=== PATIENT | female | born 1970 | race Hispanic/Latino ===

== ENCOUNTER 2020-07-23 08:27 | Emergency (ER) | payer SELFPAY ==
--- NOTE | 2020-07-23 09:38 | RAD REPORT ---
EXAM DESCRIPTION: CT - [id number] - 07/23/2020 9:20 am CLINICAL HISTORY: Trauma, head and neck injury. PAIN COMPARISON: No comparisons TECHNIQUE: Axial 5 mm thick images of the head were obtained. Axial 2 mm thick images of the cervical spine were obtained with sagittal and coronal reconstruction images generated and reviewed. All CT scans are performed using dose optimization technique as appropriate and may include automated exposure control or mA/KV adjustment according to patient size. FINDINGS: CT HEAD WITHOUT CONTRAST: No acute hemorrhage, hydrocephalus or extra-axial collection is identified.No areas of brain edema or midline shift. The paranasal sinuses and mastoids are clear.The calvarium is intact. CT CERVICAL SPINE WITHOUT CONTRAST: No fracture or subluxation.No prevertebral soft tissues swelling is identified. IMPRESSION: No acute intracranial or cervical spine findings.
--- NOTE | 2020-07-23 09:39 | RAD REPORT ---
EXAM DESCRIPTION: RAD - Hip Left 2 View - 07/23/2020 9:27 am CLINICAL HISTORY: PAIN COMPARISON: No comparisons FINDINGS: No fracture, dislocation or AVN.
--- NOTE | 2020-07-23 09:53 | EDPHYS ---
Physician Documentation [facility] Name: Livier Tee Age: 50 yrs Sex: Female : 1970 Arrival Date: 07/23/2020 Time: 08:29 Bed 18 Private MD: ED Physician Allen Michaels HPI: 07/23 09:48 This 50 yrs old Female presents to ER via Ambulatory with complaints of Fall kb Injury, Head Injury-Adult. 09:48 Details of fall: The patient fell from a height, down approximately 4 stairs. Onset: kb The symptoms/episode began/occurred this morning. Associated injuries: The patient sustained injury to the head, hematoma, pain, left hip, painful injury, left subscapular area and left scapular area, painful injury, no tenderness. Severity of symptoms: At their worst the symptoms were mild, moderate, in the emergency department the symptoms are unchanged. The patient has not experienced similar symptoms in the past. The patient has not recently seen a physician. 09:49 Pt reports she slipped going down the stairs and fell down the last 4 steps. States she kb hit her head. Denies LOC, dizziness, nausea, confusion. States she has pain to head, left hip, left upper back. Full ROM of all extremities. Ambulates with steady gait. 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 - Social history:: Smoking status: Patient reports the use of cigarette tobacco products, smokes one pack cigarettes per day. ROS: 09:44 Constitutional: Negative for fever, chills, and weight loss, Cardiovascular: Negative kb for chest pain, palpitations, and edema, Respiratory: Negative for shortness of breath, cough, wheezing, and pleuritic chest pain, Abdomen/GI: Negative for abdominal pain, nausea, vomiting, diarrhea, and constipation, Skin: Negative for injury, rash, and discoloration. 09:44 Back: Positive for pain at rest, of the left scapular area and left subscapular area. 09:44 MS/extremity: Positive for pain, of the left hip. 09:44 Skin: Positive for hematoma, of the scalp. 09:44 Neuro: Positive for headache. Exam: 09:44 Constitutional: This is a well developed, well nourished patient who is awake, alert, kb and in no acute distress. Eyes: Pupils equal round and reactive to light, extra-ocular motions intact. Lids and lashes normal. Conjunctiva and sclera are non-icteric and not injected. Cornea within normal limits. Periorbital areas with no swelling, redness, or edema. Neck: Trachea midline, no thyromegaly or masses palpated, and no cervical lymphadenopathy. Supple, full range of motion without nuchal rigidity, or vertebral point tenderness. No Meningismus. Chest/axilla: Normal chest wall appearance and motion. Nontender with no deformity. No lesions are appreciated. Cardiovascular: Regular rate and rhythm with a normal S1 and S2. No gallops, murmurs, or rubs. Normal PMI, no JVD. No pulse deficits. Respiratory: Lungs have equal breath sounds bilaterally, clear to auscultation and percussion. No rales, rhonchi or wheezes noted. No increased work of breathing, no retractions or nasal flaring. Abdomen/GI: Soft, non-tender, with normal bowel sounds. No distension or tympany. No guarding or rebound. No evidence of tenderness throughout. Back: No spinal tenderness. No costovertebral tenderness. Full range of motion. Neuro: Awake and alert, GCS 15, oriented to person, place, time, and situation. Cranial nerves II-XII grossly intact. Motor strength 5/5 in all extremities. Sensory grossly intact. Cerebellar exam normal. Normal gait. 09:44 Head/face: Noted is no obvious of injury or deformity except hematoma, that is mild, of the left side of the back of head and right side of the back of head. 09:44 Musculoskeletal/extremity: Extremities: grossly normal except: noted in the left hip: swelling, tenderness, ROM: intact in all extremities, Circulation is intact in all extremities. Sensation intact. Weight bearing: able to fully bear weight. Vital Signs: 08:47 BP 117 / 68; Pulse 75; Resp 16; Temp 97.8; Pulse Ox 100% on R/A; Pain 10/10; hb 10:03 BP 104 / 68; Pulse 72; Resp 16; ss MDM: 08:59 Patient medically screened. kb 09:48 Data reviewed: vital signs, nurses notes. Data interpreted: Pulse oximetry: on room air kb is 100 %. Interpretation: normal. Counseling: I had a detailed discussion with the patient and/or guardian regarding: the historical points, exam findings, and any diagnostic results supporting the discharge/admit diagnosis, radiology results, the need for outpatient follow up, a family practitioner, to return to the emergency department if symptoms worsen or persist or if there are any questions or concerns that arise at home. 07/23 09:04 Order name: CT Head C Spine kb 07/23 09:04 Order name: Hip Left 2 View XRAY kb 07/23 09:39 Order name: CT; Complete Time: 09:41 EDMS 07/23 09:40 Order name: RAD; Complete Time: 09:41 EDMS Administered Medications: No medications were administered Disposition: 14:33 Co-signature as Attending Physician, Allen Michaels MD. rn Disposition: 07/23/20 09:52 Discharged to Home. Impression: Fall on and from stairs and steps, Superficial injury of head, Pain in left hip. - Condition is Stable. - Discharge Instructions: Hematoma, [id number], Musculoskeletal Pain, Head Injury, Adult, [id number]. - Prescriptions for Ibuprofen 600 mg Oral Tablet - take 1 tablet by ORAL route every 6 hours As needed take with food; 30 tablet. Cyclobenzaprine 10 mg Oral Tablet - take 1 tablet by ORAL route every 8 hours As needed; 21 tablet. - Work release form, Medication Reconciliation Form, Thank You Letter, Antibiotic Education, Prescription Opioid Use form. - Follow up: Emergency Department; When: As needed; Reason: Worsening of condition. Follow up: Private Physician; When: 2 - 3 days; Reason: Recheck today's complaints, Continuance of care, Re-evaluation by your physician. Signatures: Dispatcher [employer] EDKS Glo Novoa, RECTIFIER OPERATOR-C RECTIFIER OPERATOR-Allen Rodriguez MD MD rn Smirch, Shelby, RN RN ss Baxter, Heather, RN RN Corrections: (The following items were deleted from the chart) 09:47 09:44 Musculoskeletal/extremity: Extremities: grossly normal except: noted in the right kb hip: swelling, tenderness, ROM: intact in all extremities, Circulation is intact in all extremities. Sensation intact. kb 09:50 09:48 Associated injuries: The patient sustained injury to the head, hematoma, pain, kb right hip, painful injury, left subscapular area and left scapular area, painful injury, no tenderness, 09:51 09:44 MS/extremity: Positive for pain, of the right hip, kb kb 09:51 09:44 Musculoskeletal/extremity: Extremities: grossly normal except: noted in the right kb hip: swelling, tenderness, ROM: intact in all extremities, Circulation is intact in all extremities. Sensation intact. Weight bearing: able to fully bear weight, 10:05 09:52 07/23/2020 09:52 Discharged to Home. Impression: Fall on and from stairs and ss steps; Superficial injury of head; Pain in left hip. Condition is Stable. Forms are Medication Reconciliation Form, Thank You Letter, Antibiotic Education, Prescription Opioid Use. Follow up: Emergency Department; When: As needed; Reason: Worsening of condition. Follow up: Private Physician; When: 2 - 3 days; Reason: Recheck today's complaints, Continuance of care, Re-evaluation by your physician. kb
--- NOTE | 2020-07-23 09:53 | ER ---
Nurse's Notes [facility] Name: Livier Tee Age: 50 yrs Sex: Female : 1970 Arrival Date: 07/23/2020 Time: 08:29 Bed 18 Private MD: Diagnosis: Fall on and from stairs and steps;Superficial injury of head;Pain in left hip Presentation: 07/23 08:45 Chief complaint: Headache, low back pain, and left leg pain after fall down stairs this morning. Denies LOC. Walked to triage with steady gait. No obvious injuries. Care prior to arrival: None. Mechanism of Injury: Fall down 5 steps. Trauma event details: Injury occurred in the [facility], Injury occurred: at home. Injury occurred: July 23, 2020 Injury occurred at: 05:00. 08:45 Acuity: ARIELA 4 hb 08:45 Method Of Arrival: Ambulatory hb 08:47 Coronavirus screen: At this time, the client does not indicate any symptoms associated hb with coronavirus-19. Ebola Screen: No symptoms or risks identified at this time. Initial Sepsis Screen: Does the patient meet any 2 criteria? No. Patient's initial sepsis screen is negative. Does the patient have a suspected source of infection? No. Patient's initial sepsis screen is negative. Risk Assessment: Do you want to hurt yourself or someone else? Patient reports no desire to harm self or others. Onset of symptoms was July 23, 2020. 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 - Social history:: Smoking status: Patient reports the use of cigarette tobacco products, smokes one pack cigarettes per day. Screenin:09 Abuse screen: Denies threats or abuse. Nutritional screening: No deficits noted. tw2 Tuberculosis screening: No symptoms or risk factors identified. Fall Risk None identified. Assessment: 09:11 General: Appears uncomfortable, Behavior is calm, cooperative, quiet, Denies fever, ss feeling ill, fatigue, chills. Pain: Complains of pain in head, L hip pain and R upper back pain Pain currently is 10 out of 10 on a pain scale. Quality of pain is described as aching, tender, throbbing, Pain began this morning, suddenly Is continuous. Neuro: Level of Consciousness is awake, alert, obeys commands, Oriented to person, place, time, situation, Speech is normal, Facial symmetry appears normal. Cardiovascular: Capillary refill < 3 seconds is brisk in bilateral fingers Patient's skin is warm and dry. Pulses are palpable in right radial artery, right posterior tibial artery, left radial artery and left posterior tibial artery. Respiratory: Airway is patent Respiratory effort is even, unlabored, Respiratory pattern is regular, symmetrical. GI: No signs and/or symptoms were reported involving the gastrointestinal system. Abdomen is non-distended. : No signs and/or symptoms were reported regarding the genitourinary system. EENT: Oral mucosa is moist. Derm: Skin is intact, is healthy with good turgor, Skin is dry, Skin is pink, warm \T\ dry. normal. Musculoskeletal: Circulation, motion, and sensation intact. Range of motion: intact in all extremities, Swelling absent. 09:14 Reassessment: Pt to CT at this time VIA wheelchair. ss Vital Signs: 08:47 BP 117 / 68; Pulse 75; Resp 16; Temp 97.8; Pulse Ox 100% on R/A; Pain 10/10; hb 10:03 BP 104 / 68; Pulse 72; Resp 16; ss ED Course: 08:29 Patient arrived in ED. ds1 08:46 Triage completed. hb 08:47 Arm band placed on. hb 08:49 Bed in low position. Call light in reach. Pulse ox on. NIBP on. tw2 08:59 Glo Novoa F[facility]-C [facility] kb 08:59 Allen Michaels MD is Attending Physician. kb 09:06 Jayda Connelly, MELANY is Primary Nurse. ss 10:04 No provider procedures requiring assistance completed. Patient did not have IV access ss during this emergency room visit. Administered Medications: No medications were administered Outcome: 09:52 Discharge ordered by . kb 10:04 Discharged to home ambulatory. 10:04 Condition: good 10:04 Discharge instructions given to patient, Instructed on discharge instructions, follow up and referral plans. medication usage, Demonstrated understanding of instructions, follow-up care, medications, Prescriptions given X 2. 10:05 Patient left the ED. Signatures: Glo Novoa, SETTLEMENT AGENT-C SETTLEMENT AGENT-Ckb Charo Cole ds1 Jayda Connelly RN RN Mable Patiño RN RN Modesta Powell RN RN tw2
[2020-07-23 10:10] VITALS: TEMP 97.8; O2SAT 100
[2020-07-23 10:11] VITALS: BP 104/68
== END 2020-07-23 10:05 | disposition home or self-care (01) ==
LOC: ER 08:27
DX: M25.552 Pain in left hip (principal); S00.03XA Contusion of scalp, initial encounter; M54.6 Pain in thoracic spine; W10.9XXA Fall (on) (from) unspecified stairs and steps, initial encounter; F17.210 Nicotine dependence, cigarettes, uncomplicated
CPT/HCPCS: 70450; 72125; 99283